=== PATIENT | male | born 1945 | race Caucasian/White ===

== ENCOUNTER 2016-05-10 06:40 | Day surgery (SDC) | payer MEDICARE ==
[2016-05-10] MEDS ORDERED: Lactated Ringers 1,000 ML IV SCH (06:55)
[2016-05-10] MEDS ORDERED: Sodium Chloride 0.9% 5 ML Syringe FLUSH PRN (06:55)
[2016-05-10] MEDS ORDERED: Gatifloxacin 0.5% Ophth Soln 2.5 ML Bot EYERT SCH (06:55)
[2016-05-10] MEDS: Cyclopentolate 1% Opth Soln 2 ML Bottle EYERT SCH ×3 (07:24→07:59)
[2016-05-10] MEDS: Phenylephrine 10% Ophth Soln 5 ML Bot EYERT SCH ×3 (07:34→08:13)
[2016-05-10 07:53] LABS: CHLORIDE,CL 101 mmol/L (98-115); SODIUM,NA 136 mmol/L (136-145)
[2016-05-10] MEDS ORDERED: Balanced Salt Solution Ophth Irrig 15 ML Bottle EYERT ONE (09:06)
[2016-05-10] MEDS ORDERED: Balanced Salt Solution Plus Ophth Irrig 500 ML Bottle IOCULAR ONE (09:06)
[2016-05-10] MEDS ORDERED: Water For Irrigation,Sterile 1,500 ML Container IRR ONE (09:06)
[2016-05-10] MEDS ORDERED: EPINEPHrine 1:1000 1 MG/ML SDV ONE (09:07)
[2016-05-10] MEDS ORDERED: Tetracaine 0.5% 2 ML Bottle EYEBOTH ONE (09:07)
[2016-05-10] MEDS ORDERED: Carbachol 0.01% Intraocular 1.5 ML Vial EYERT ONE (09:07)
[2016-05-10] MEDS ORDERED: Dexamethasone/Neomycin/Polymyxin B Ophth Oint 3.5 GM Tube EYERT ONE (09:07)
[2016-05-10] MEDS ORDERED: Lidocaine 1% 10 ML MDV INJECT ONE (09:08)
[2016-05-10] MEDS ORDERED: Lidocaine 2% with EPINEPHrine 1:100,000 20 ML MDV INJECT ONE (09:08)
[2016-05-10] MEDS ORDERED: Hyaluronate Sodium 1% 0.85 ML Syringe IOCULAR ONE ×2 (09:08)
[2016-05-10 09:37] VITALS: BP 148/66
--- NOTE | 2016-05-10 13:08 | PROC ---
DATE OF PROCEDURE: PHYSICIAN: Harmeet Nieves MD PRE-PROCEDURE DIAGNOSIS: Cataract, right eye. POST-PROCEDURE DIAGNOSIS: Cataract, right eye. PROCEDURE PERFORMED: Phacoemulsification with posterior chamber lens insertion, right eye. FINDINGS: The patient was taken to the operating room where appropriate anesthesia, sedation and monitoring were provided. A retrobulbar block was given on the right side. The eye was massaged and was found to be appropriately soft. The eye and eyelids were then prepped and draped in the usual sterile manner. A lid speculum was placed. A micro sharp blade was used to enter the anterior chamber inside the limbus superior-temporally. Xylocaine was irrigated into the eye at this site. Healon was irrigated into the eye through this site. Then using a 2.85 mm corneal blade an entry was made into the anterior chamber just inside the limbus temporally. Healon was again irrigated into the eye. Then using a cystitome, the anterior capsulorrhexis was created. The lens nucleus was hydrodissected using a 27 gauge cannula and balanced salt solution. The phacoemulsification unit was introduced through the temporal site and the Gsu spatula through the superior temporal site. In so doing, the lens nucleus was phacoemulsified. The cortical fragments of the lens were removed using the irrigation aspiration unit. The posterior capsule was polished. Healon was irrigated into the eye. The posterior chamber lens was inserted and rotated into position inside the capsular bag. The Healon was irrigated out of the eye. Miostat was irrigated into the eye and the pupil rounded nicely. Two interrupted 10-0 Nylon sutures were placed through the temporal corneal incision site. Balanced salt solution was irrigated into the eye. The wound was tested and found to be tight. Maxitrol ointment was placed into the patient's right eye. The eyelids were closed and an eye patch and pizano shield were placed. The patient left the operating room in good condition. /[id number]/MODL
== END 2016-05-10 09:55 | disposition home or self-care (01) ==
LOC: KA.SDS 06:40
PROVIDERS: ATTEND Ophthalmology
DX: H26.9 Unspecified cataract (principal); Z98.890 Other specified postprocedural states; Z88.0 Allergy status to penicillin; Z91.012 Allergy to eggs; Z79.899 Other long term (current) drug therapy
CPT/HCPCS: 36415; 66984; 80048; A9270; C1780; J0171; J7120; 00142